=== PATIENT | female | born 1995 ===

== ENCOUNTER 2022-07-01 20:20 | Emergency (ER) | payer SELFPAY ==
[2022-07-02] MEDS ORDERED: traMADol 50 MG TAB PO ONE (02:05)
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
[2022-07-02 03:39] VITALS: BP 116/67
== END 2022-07-02 03:39 | disposition home or self-care (01) ==
LOC: ED 20:20
DX: M54.50 Low back pain, unspecified (principal); V89.2XXA Person injured in unspecified motor-vehicle accident, traffic, initial encounter; Y93.89 Activity, other specified; Y92.89 Other specified places as the place of occurrence of the external cause; Y99.8 Other external cause status
CPT/HCPCS: 72100; 99283